=== PATIENT | female | born 2005 | race Caucasian/White ===

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

== ENCOUNTER 2023-01-05 15:17 | Outpatient (CLI) | payer BC, SELFPAY ==
--- NOTE | 2023-01-05 15:26 | ECHO_ITS ---
Patient Info Name: Emily Troy Age: 17 years : 2005 Gender: Female Ht: 60 in Wt: 115 lbs BSA: 1.49 m2 HR: 86 bpm BP: 118 / 67 mmHg Heart Rhythm: Sinus Rhythm Technical Quality: Good Exam Date: 01/05/2023 3:28 PM Exam Location: Echo Lab Patient Status: Outpatient Admit Date: 01/05/2023 Staff Ordering Physician: Odilon Savage PA-C Studio Operator: Rachel Birmingham RDCS Attending Provider: Odilon Savage PA-C Referring Physician: Janette HAM; Exam Type: CA echo doppler color flow Study Info Indications - new onset heart murmur Complete two-dimensional, color flow and Doppler transthoracic echocardiogram is performed. Summary 1. Complete two-dimensional, color flow and Doppler transthoracic echocardiogram is performed. 2. Left ventricular chamber dimension is normal. 3. Left ventricular systolic function is normal, estimated at 60-65%. 4. The left ventricular diastolic function is normal. 5. E/e' 7 is not elevated. 6. There is trace tricuspid valve regurgitation. 7. No pulmonary hypertension, estimated pulmonary arterial systolic pressure is 22 mmHg. Left Ventricle E/e' 7 is not elevated. Left ventricular chamber dimension is normal. Left ventricular systolic function is normal, estimated at 60-65%. The left ventricular diastolic function is normal. Right Ventricle Right ventricular systolic function is normal and with normal TAPSE 2.5 cm. Right ventricular chamber dimension is normal. Left Atria Left atrial chamber dimension is normal. Right Atria Right atrial chamber dimension is normal. Aortic Valve The aortic valve is trileaflet. There is no aortic valve stenosis. There is no aortic valve regurgitation. Pulmonic Valve There is no pulmonic regurgitation. Mitral Valve There is no mitral valve stenosis. There is no mitral valve regurgitation. Tricuspid Valve There is trace tricuspid valve regurgitation. No pulmonary hypertension, estimated pulmonary arterial systolic pressure is 22 mmHg. Pericardium/Pleural There is no pericardial effusion. Inferior Vena Cava Normal inferior vena cava with >50% collapse upon inspiration consistent with normal right atrial pressure, 5 mmHg. Aorta The aortic root size at the sinus of Valsalva is normal. Left Ventricular Outflow Tract Name Value Normal LVOT 2D LVOT Diameter 2.0 cm LVOT Doppler LVOT Peak Gradient 3 mmHg LVOT Mean Gradient 2 mmHg LVOT VTI 17 cm LVOT VTI/AV VTI Ratio 0.6 LVOT Stroke Volume 52 ml LVOT CO 4.2 l/min LVOT CI 2.8 l/min/m2 Pulmonic Valve Name Value Normal RVOT Doppler RVOT Peak Gradient 5 mmHg PV Doppler PV Peak Gradient
== END 2023-01-05 15:18 | disposition home or self-care (01) ==
LOC: ANHCARD 15:18
PROVIDERS: PCP Physician Assistant; Visit Provider Physician Assistant
DX: R01.1 Cardiac murmur, unspecified (principal)
CPT/HCPCS: 93306

== ENCOUNTER 2023-09-08 09:07 | Emergency (ER) | payer BC, SELFPAY ==
[2023-09-08 09:35] VITALS: BP 107/60; PULSE 115; RESP 16; TEMP 38.2; O2SAT 99
--- NOTE | 2023-09-08 10:04 | ED.URI ---
HPI - URI/Sore Throat General Chief Complaint: Upper Respiratory Infection Stated Complaint: throat hurts,ROSEN,bodyaches Time Seen by Provider: 09/08/23 10:01 Source: patient and RN notes reviewed Mode of arrival: ambulatory Limitations: no limitations History of Present Illness HPI Narrative: Patient presents today with a 2 day history of sore throat with headache and body aches that started last night. Also reports some mild nasal congestion. Denies fever, rhinorrhea, cough. Currently rates her pain 3/10 and has been taking DayQuil and NyQuil with mild relief. Related Data Allergies Allergy/AdvReac Type Severity Reaction Status Date / Time No Known Allergies Allergy Verified 09/08/23 09:32 Review of Systems Review of Systems: CONSTITUTIONAL: Denies fever, chills, or sweats.+ body aches EYES: Denies visual changes, redness, or discharge. ENT: Denies rhinorrhea, or otalgia.+ congestion, sore throat CARDIOVASCULAR: Denies chest pain, palpitations, or edema. RESPIRATORY: Denies cough or dyspnea. GASTROINTESTINAL: Denies abdominal pain, nausea, vomiting, or diarrhea. GENITOURINARY: Denies dysuria or hematuria. SKIN: Denies rash, itching, or wounds. MUSCULOSKELETAL: Denies back pain, joint pain, or myalgia. NEUROLOGIC: Denies numbness, tingling, or weakness.+ headache PSYCH: Denies depression or anxiety. [facility] Past Medical History Medical History No significant medical problems Surgical History Surgical History No pertinent past surgical history Family History Family History Father Diabetes mellitus Mother Asthma Depression Heart disease Sibling Asthma Depression Grandparent Diabetes mellitus Heart disease Alcoholism Social History Social History Smoking status: Never smoker Alcohol intake: never Substance use: unknown Lack of Transportation: No Lack of Food: Never True Current Housing: I Have Housing Concerned About Future Housing: No Difficulty Paying Gas/Electric Bills: No Difficulty Paying for Meds: No Currently Unemployed: No Education: High School Diploma/GED Difficulty w/ Childcare or Family Care: No Living arrangements: with family Gender identity (if verbalized by the patient): Female Spiritual care concerns: No Comments At time of signature, I have reviewed and agree with nursing past medical, surgical, social and family history unless otherwise noted. Please see nursing chart for further information. There is no relevant family history pertinent to the presenting complaint Exam Narrative: GENERAL: Well-appearing, well-nourished, and in no acute distress. HEAD: Normocephalic, atraumatic. EYES: EOMI. No redness or drainage. Conjunctivae normal. ENT: Mucous membranes pink and moist. Nares clear. No rhinorrhea. TMs normal bilaterally. Throat erythematous and mildly edematous without exudate. Tonsils 2+. Uvula midline. NECK: Normal AROM. Supple. No lymphadenopathy. CHEST: No respiratory distress. Clear to auscultation. HEART: Regular rate and rhythm. No murmur appreciated. EXTREMITIES: Normal range of motion. No edema. SKIN: Warm, dry, no rash. Capillary refill normal. Normal skin turgor. NEURO: No focal deficits. Alert and oriented x3. Gait steady. PSYCH: Normal affect. No signs of depression or anxiety. Course Course Level of Care: Express Care Visit Vital Signs Vital signs: Vital Signs Temperature 100.8 F H 09/08/23 09:35 Pulse Rate 115 H 09/08/23 09:35 Respiratory Rate 16 09/08/23 09:35 Blood Pressure 107/60 09/08/23 09:35 Pulse Oximetry 99 09/08/23 09:35 Temperature 100.8 F H 09/08/23 09:35 Pulse Rate 115 H 09/08/23 09:35 Respiratory Rate 16 09/08/23
== END 2023-09-08 10:09 | disposition home or self-care (01) ==
PROVIDERS: Emergency Provider Nurse Practitioner; PCP Physician Assistant
DX: J02.9 Acute pharyngitis, unspecified (principal)
CPT/HCPCS: 87880; 99213; G0463

== ENCOUNTER 2023-09-15 01:24 | Day surgery (SDC) | payer BC, SELFPAY ==
[2023-09-02 13:19] VITALS: BMI 21.9
[2023-09-15 11:14] VITALS: BP 96/57; PULSE 94; RESP 18; TEMP 36.1; O2SAT 100; BMI 21.3
[2023-09-15] MEDS: LACTATED RINGERS 1,000 ML 150 ML IV CONT (11:22)
--- NOTE | 2023-09-15 11:28 | P.PNAN_ITS ---
Anes - Initial Pre Proc Eval Procedure: Operation Date: 09/15/23 12:30 Proposed Procedures p Esophagogastroduodenoscopy & Colonoscopy - Dusty Jones MD Date/Time: 09/15/23 11:28 Surgeon: Dusty Jones MD Pre Op Diagnosis: GERD, Melena, N&V, Abnormal Wt. Loss Patient Data Age: 18 Gender: F Height: 1.52 m Weight: 49.5 kg Last Vital Signs Temp 97 F L 09/15/23 11:14 Pulse 94 09/15/23 11:14 Resp 18 09/15/23 11:14 BP 96/57 L 09/15/23 11:14 Pulse Ox 100 09/15/23 11:14 O2 Del Method Room Air 09/15/23 11:14 Allergies Allergy/AdvReac Type Severity Reaction Status Date / Time No Known Allergies Allergy Verified 09/15/23 11:12 Home Medications Medication Instructions Recorded Confirmed Type omeprazole 20 mg tablet,delayed 20 mg PO DAILY #90 tabs 07/14/23 09/15/23 Rx release amoxicillin 875 mg tablet 875 mg PO Q12H 10 days #20 tabs 09/08/23 09/15/23 Rx Patient hx anesthesia problems: none Family hx anesthesia problems: none Results Review: All pre-operative results and documents have been reviewed as part of the pre- operative evaluation. [facility] Past Medical History Medical History No significant medical problems Surgical History Surgical History No pertinent past surgical history Family History Family History Father Diabetes mellitus Mother Asthma Depression Heart disease Sibling Asthma Depression Grandparent Diabetes mellitus Heart disease Alcoholism Social History Social History Smoking status: Never smoker Alcohol intake: never Substance use: unknown Lack of Transportation: No Lack of Food: Never True Current Housing: I Have Housing Concerned About Future Housing: No Difficulty Paying Gas/Electric Bills: No Difficulty Paying for Meds: No Currently Unemployed: No Education: High School Diploma/GED Difficulty w/ Childcare or Family Care: No Living arrangements: with family Gender identity (if verbalized by the patient): Female Spiritual care concerns: No Anes - Eval Final PreProcedure Day of Procedure 09/15/23 11:28 Patient weight: normal Heart: regular rate and rhythm Lungs: clear to auscultation Airway: Mallampati scale class II Neurological: alert and oriented Last oral intake: >/= 8 hours ASA classification: II Emergent: no Anesthetic plan: proceed Anesthesia type and monitoring: general GIVS and standard monitoring Results Review: All pre-operative results and documents have been reviewed as part of the pre-operative evaluation. Informed Consent: The patient's anesthetic plan and its attendant risks and benefits were discussed with the patient/family/POA. Questions were solicited and answers provided to the satisfaction of the patient/family/POA.
--- NOTE | 2023-09-15 11:47 | PM.HPGS ---
History of Present Illness History of Present Illness Consent: Risks, benefits, and alternatives have been discussed and questions answered. Patient agrees to proceed with procedure. Chief complaint: GERD, Melena, N&V, Abnormal Wt. Loss Narrative: Emily Troy is a 18 year old female with n/v, better with omeprazole and also noted blood in stools, never had scopes Review of Systems Review of Systems: All systems reviewed & are unremarkable except as noted in HPI and below PMFSH Past Medical History Medical History No significant medical problems Surgical History Surgical History No pertinent past surgical history Family History Family History Father Diabetes mellitus Mother Asthma Depression Heart disease Sibling Asthma Depression Grandparent Diabetes mellitus Heart disease Alcoholism Social History Social History Smoking status: Never smoker Alcohol intake: never Substance use: unknown Lack of Transportation: No Lack of Food: Never True Current Housing: I Have Housing Concerned About Future Housing: No Difficulty Paying Gas/Electric Bills: No Difficulty Paying for Meds: No Currently Unemployed: No Education: High School Diploma/GED Difficulty w/ Childcare or Family Care: No Living arrangements: with family Gender identity (if verbalized by the patient): Female Spiritual care concerns: No Meds Home Medications and Allergies Home Medications Medication Instructions Recorded Confirmed Type omeprazole 20 mg tablet,delayed 20 mg PO DAILY #90 tabs 07/14/23 09/15/23 Rx release amoxicillin 875 mg tablet 875 mg PO Q12H 10 days #20 tabs 09/08/23 09/15/23 Rx Allergies Allergy/AdvReac Type Severity Reaction Status Date / Time No Known Allergies Allergy Verified 09/15/23 11:12 Vital Signs Vital Signs - 24 hr 09/15/23 11:14 Temperature 97 F L Pulse Rate 94 Respiratory Rate 18 Blood Pressure 96/57 L Pulse Oximetry 100 Oxygen Delivery Room Air Exam Const: General: comfortable and no acute distress HENMT: Face/Nose/Sinus: Normal nares present Eyes: General: appearance normal, both eyes and all related structures Neck: Neck: no JVD Resp: Auscultation: clear to auscultation bilaterally Cardio: Rate: regular rate Rhythm: regular rhythm GI: Inspection: non-distended GI Palp: Yes Soft to palpation Skin: General skin exam: normal color Neuro: General: gait normal Speech: normal speech Extrem: General: normal to inspection Psych: Mental Status: mental status grossly normal Assessment and Plan Assessment and plan (1) Nausea and vomiting: Code(s): R11.2 - Nausea with vomiting, unspecified Status: Acute Assessment and Plan: egd with bx (2) Bright red blood per rectum: Code(s): K62.5 - Hemorrhage of anus and rectum Status: Acute Assessment and Plan: colonoscopy (3) Chronic GERD: Code(s): K21.9 - Gastro-esophageal reflux disease without esophagitis Status: Acute
--- NOTE | 2023-09-15 11:57 | SUR.OPER ---
EGD end 1155 COLONOSCOPY START 1200
[2023-09-15 12:12] VITALS: BP 92/38; PULSE 100; RESP 22; O2SAT 97
[2023-09-15 12:22] VITALS: BP 95/38; PULSE 101; RESP 21; O2SAT 99
[2023-09-15 12:32] VITALS: BP 100/79; PULSE 79; RESP 21; O2SAT 100
== END 2023-09-15 12:50 | disposition home or self-care (01) ==
PROVIDERS: PCP Physician Assistant; Referring Provider Nurse Practitioner; Visit Provider Internal Medicine Gastroenterology
PROC: 0DJ08ZZ Inspection of Upper Intestinal Tract, Via Natural or Artificial Opening Endoscopic (ICD-10-PCS; CPT 43235; principal; 2023-09-15 12:30)
DX: K21.9 Gastro-esophageal reflux disease without esophagitis (principal); K31.89 Other diseases of stomach and duodenum; D72.18 Eosinophilia in diseases classified elsewhere; K29.70 Gastritis, unspecified, without bleeding; Z82.49 Family history of ischemic heart disease and other diseases of the circulatory system
CPT/HCPCS: 43239; 88305; J2704; J7120